=== PATIENT | male | born 1970 | race Caucasian/White ===

== ENCOUNTER 2016-08-17 07:31 | Emergency (ER) | payer SELFPAY ==
[~2016-08-17] VITALS: Ht 162.6 cm; Wt 66.6 kg
[2016-08-17 08:51] LABS: EOSINOPHIL (%) 0.3 % (0-5); HEMATOCRIT 48.8 % (38.0-50.0); IMMATURE GRANULOCYTE (%) 0.3 % (0.0-0.7); INSTRUMENT ABS NEUTROPHIL CT 7.4 K/uL; LYMPHOCYTE COUNT 1.5 K/uL (1.0-2.8); MCH 30.6 PG (29.0-34.0); MCHC 33.8 G/DL (30.0-36.0); MCV 90.5 FL (86-99); MONOCYTE (%) 7.6 % (3-12); MONOCYTE COUNT 0.7 K/uL (0-0.8); NEUTROPHIL (%) 76.2 % (45-76); NEUTROPHIL COUNT 7.4 K/uL (1.8-6.4); PLATELET COUNT 247 K/uL (156-360); RBC DIS.WIDTH-CV 12.6 % (11.8-14.6); RBC DIS.WIDTH-SD 41.4 % (39-53); RED BLOOD COUNT 5.39 M/uL (4.00-5.50); WHITE BLOOD COUNT 9.7 K/uL (4.1-10.2)
[2016-08-17 09:13] LABS: CHLORIDE 104 mEq/L (99-109); POTASSIUM 3.7 mEq/L (3.7-5.4); SODIUM 137 mEq/L (136-147)
[2016-08-17 09:16] LABS: GLUCOSE 97 mg/dL (70-99)
[2016-08-17 09:17] LABS: ANION GAP 7 MEQ/L (2-14)
[2016-08-17 09:18] LABS: TOTAL BILIRUBIN 0.7 mg/dL (0.0-1.0)
[2016-08-17 09:19] LABS: ALKALINE PHOSPHATASE 107 IU/L (3-129); GFR ESTIMATE (CALCULATED) > 59 mL/min/
[2016-08-17 09:20] LABS: UREA NITROGEN (BUN) 11 mg/dL (9-23)
[2016-08-17] MEDS ORDERED: AUGMENTIN875 MG PO (14:15)
[2016-08-17 14:41] VITALS: BP 141/91
== END 2016-08-17 14:42 | disposition home or self-care (01) ==
LOC: EME 07:31
PROVIDERS: Physician Assistant
DX: L03.211 Cellulitis of face (principal)
CPT/HCPCS: 70487; 80053; 83605; 85025; 87040; 99281; 99285; J0295; J7050; J7120